=== PATIENT | female | born 1995 | race Caucasian/White ===

== ENCOUNTER 2016-10-02 01:38 | Emergency (ER) | payer MEDICAID, OTHER ==
[~2016-10-02] VITALS: Ht 162.6 cm; Wt 58.0 kg
[2016-10-02] MEDS ORDERED: ONDANSETRON HCL 4 MG/2 ML VIAL IV ONE (01:45)
[2016-10-02] MEDS ORDERED: SODIUM CHLOR 0.9% 1000 ML INJ 1,000 ML IV ONE ×2 (01:45→05:00)
[2016-10-02 01:50] VITALS: BP 118/62; PULSE 65; RESP 16; TEMP 98.1; O2SAT 100
[2016-10-02 02:18] VITALS: RESP 16; O2SAT 100
[2016-10-02 02:23] LABS: HEMATOCRIT 33.9 % (35.0-46.0); RED BLOOD COUNT 4.46 MIL/MM3 (4.00-5.30); WHITE BLOOD COUNT 6.9 TH/MM3 (4.0-11.0)
[2016-10-02 02:24] LABS: AUTOMATED NEUTROPHIL # 4.1 TH/MM3 (1.8-7.7); BASOPHIL % 0.6 % (0.0-2.0); EOSINOPHIL # 0.1 TH/MM3 (0-0.4); EOSINOPHIL % 1.5 % (0.0-4.0); LYMPH % 31.6 % (9.0-44.0); LYMPHOCYTE # 2.2 TH/MM3 (1.0-4.8); MEAN CELL VOLUME 75.9 FL (80.0-100.0); MEAN CORPUSCULAR HEMOGLOBIN 24.7 PG (27.0-34.0); MEAN CORPUSCULAR HGB CONC 32.5 % (32.0-36.0); MONO % 5.9 % (0.0-8.0); NEUT % 60.4 % (16.0-70.0); PLATELET COUNT 284 TH/MM3 (150-450); RED CELL DISTRIBUTION WIDTH 16.6 % (11.6-17.2)
[2016-10-02 02:28] LABS: BLOOD, URINE TRACE (NEG); COMMENT (UR) CATH-CULT NOT IND; CULTURE IF INDICATED CATH CULTURE NOT IND; GLUCOSE,URINE NEG (NEG); KETONE, URINE NEG (NEG); NITRITE,URINE NEG (NEG); TRANSITIONAL EPI CELLS, URINE <1 /hpf; URINE COLOR LIGHT-YELLOW (YELLW/STRAW)
[2016-10-02 02:30] LABS: HEMO FLAGS AUTO DIFF
--- NOTE | 2016-10-02 02:38 | PD ---
HPI Chief Complaint: Alcohol/Drug Intoxication Time Seen by Provider: 01:44 Travel History International Travel<30 days: No Contact w/Intl Traveler<30days: No Traveled to known affect area: No History of Present Illness HPI The patient is a 21 year old female who presents to the [facility] emergency department with a history of being brought in by ambulance services acutely intoxicated with alcohol experiencing nausea and vomiting. The patient was found at a local bar with a decreased level of consciousness. The patient' s GCS was 14. The patient on arrival to this facility is drowsy and intermittently dry heaving. The patient is unable to specify how many alcoholic beverages she has had this evening. When the patient is awake and, the patient becomes tearful and reports that she is embarrassed. The patient denies any recent fevers, cough, congestion, neck pain, chest pain, shortness of breath, abdominal pain, diarrhea, urinary symptoms, or neurologic symptoms. LMP: Unknown PFSH Past Medical History Narrative Medical The patient's past medical history is reportedly none. Immunizations Current: Yes Tetanus Vaccination: Unknown Influenza Vaccination: No ?: Unknown Past Surgical History Narrative Surgical The patient's past surgical history is reportedly none. Social History Alcohol Use: Yes (socially) Tobacco Use: No Substance Use: No Allergies-Medications (Allergen,Severity, Reaction): Coded Allergies: No Known Allergies (Unverified , 10/02/16) Reported Meds & Prescriptions Reported Meds & Active Scripts Active Active Prescriptions or Reported Medications Unobtainable Review of Systems Except as stated in HPI: all other systems reviewed are Neg General / Constitutional: No: Fever Eyes: No: Visual changes HENT: No: Headaches Cardiovascular: No: Chest Pain or Discomfort Respiratory: No: Shortness of Breath Gastrointestinal: Positive: Nausea, Vomiting, No: Abdominal Pain Genitourinary: No: Dysuria Musculoskeletal: No: Pain Skin: No Rash Neurologic: Positive: Weakness (generalized weak), Change in Mentation, Slurred Speech, No: Focal Abnormalities, Sensory Disturbance Psychiatric: No: Depression Endocrine: No: Polydipsia Hematologic/Lymphatic: No: Easy Bruising Physical Exam Narrative General: The patient is a well-developed well-nourished female in no acute distress. Head and Neck exam: Head is normocephalic atraumatic. Eyes: EOMI, pupils are equal round and reactive to light. Nose: Midline septum with pink mucous membranes Mouth: Dentition unremarkable. Moist mucus membranes. Posterior oropharynx is not erythematous. No tonsillar hypertrophy. Uvula midline. Airway patent. Neck: No palpable lymphadenopathy. No nuchal rigidity. No thyromegaly. Cardiovascular: Regular rate and rhythm without murmurs, gallops, or rubs. Lungs: Clear to auscultation bilaterally. No wheezes, rhonchi, or rales. Abdomen: Soft, without tenderness to palpation in all 4 quadrants of the abdomen. No guarding, rebound, or rigidity. Normal bowel sounds are audible. Extremities: No clubbing, cyanosis, or edema. No calf tenderness on palpation. Back: No spinous process tenderness to palpation. No costovertebral angle tenderness to palpation. Neurologic Exam: The patient is unsteady on her feet. The patient has slurred speech and a strong odor of alcohol about her. The patient has strength that is 5 over 5 in all 4 extremities intact sensation over all dermatomes. Skin Exam: No rash noted. Intact skin that is warm and dry. Data Data Last Documented VS Vital Signs Date Time Temp Pulse Resp B/P Pulse Ox O2 Delivery O2 Flow Rate FiO2 10/02/16 04:42 84 16 111/58 100 Room Air 10/02/16 01:50 98.1 Orders Complete Blood Count With Diff (10/02/16 01:44) Comprehensive Metabolic Panel (10/02/16 01:44) Urinalysis - C+S If Indicated (10/02/16 01:44) Magnesium (Mg) (10/02/16 01:44) Chest, Single Ap (10/02/16 01:44) Iv Access Insert/Monitor (10/02/16 01:44) Ecg Monitoring (10/02/16 01:44) Oximetry (10/02/16 01:44) Ed Urine Pregnancytest Poc (10/02/16 01:44) Drug Screen, Random Urine (10/02/16 01:44) Alcohol (Ethanol) (10/02/16 01:44) Sodium Chlor 0.9% 1000 Ml Inj (Ns 1000 M (10/02/16 01:45) Ondansetron Inj (Zofran Inj) (10/02/16 01:45) Sodium Chlor 0.9% 1000 Ml Inj (Ns 1000 M (10/02/16 05:00) Calcium Gluconate Inj (Calcium Gluconate (10/02/16 05:00) Labs Laboratory Tests Test 10/02/16 02:00 White Blood Count 6.9 TH/MM3 Red Blood Count 4.46 MIL/MM3 Hemoglobin 11.0 GM/DL Hematocrit 33.9 % Mean Corpuscular Volume 75.9 FL Mean Corpuscular Hemoglobin 24.7 PG Mean Corpuscular Hemoglobin 32.5 % Concent Red Cell Distribution Width 16.6 % Platelet Count 284 TH/MM3 Mean Platelet Volume 8.3 FL Neutrophils (%) (Auto) 60.4 % Lymphocytes (%) (Auto) 31.6 % Monocytes (%) (Auto) 5.9 % Eosinophils (%) (Auto) 1.5 % Basophils (%) (Auto) 0.6 % Neutrophils # (Auto) 4.1 TH/MM3 Lymphocytes # (Auto) 2.2 TH/MM3 Monocytes # (Auto) 0.4 TH/MM3 Eosinophils # (Auto) 0.1 TH/MM3 Basophils # (Auto) 0.0 TH/MM3 CBC Comment AUTO DIFF Differential Comment AUTO DIFF CONFIRMED Platelet Estimate NORMAL Platelet Morphology Comment NORMAL Ovalocytes 1+ Acanthocytes OCC Urine Color LIGHT-YELLOW Urine Turbidity CLEAR Urine pH 6.0 Urine Specific [place] 1.008 Urine Protein NEG mg/dL Urine Glucose (UA) NEG mg/dL Urine Ketones NEG mg/dL Urine Occult Blood TRACE Urine Nitrite NEG Urine Bilirubin NEG Urine Urobilinogen LESS THAN 2.0 MG/DL Urine Leukocyte Esterase TRACE Urine RBC 5 /hpf Urine WBC LESS THAN 1 /hpf Urine Transitional Epithelial <1 /hpf Cells Microscopic Urinalysis Comment CATH-CULT NOT IND Sodium Level 144 MEQ/L Potassium Level 3.2 MEQ/L Chloride Level 110 MEQ/L Carbon Dioxide Level 21.7 MEQ/L Anion Gap 12 MEQ/L Blood Urea Nitrogen 11 MG/DL Creatinine 0.87 MG/DL Estimat Glomerular Filtration 83 ML/MIN Rate Random Glucose 109 MG/DL Calcium Level 7.4 MG/DL Protein Corrected Calcium 7.9 MG/DL Magnesium Level 2.1 MG/DL Total Bilirubin 0.2 MG/DL Aspartate Amino Transf 22 U/L (AST/SGOT) Alanine Aminotransferase 20 U/L (ALT/SGPT) Alkaline Phosphatase 57 U/L Total Protein 6.2 GM/DL Albumin 3.5 GM/DL Urine Opiates Screen NEG Urine Barbiturates Screen NEG Urine Amphetamines Screen NEG Urine Benzodiazepines Screen NEG Urine Cocaine Screen NEG Urine Cannabinoids Screen NEG Ethyl Alcohol Level 301 MG/DL MDM Medical Decision Making Medical Screen Exam Complete: Yes Emergency Medical Condition: Yes Medical Record Reviewed: Yes Interpretation(s) Laboratory Tests Test 10/02/16 02:00 White Blood Count 6.9 TH/MM3 Red Blood Count 4.46 MIL/MM3 Hemoglobin 11.0 GM/DL Hematocrit 33.9 % Mean Corpuscular Volume 75.9 FL Mean Corpuscular Hemoglobin 24.7 PG Mean Corpuscular Hemoglobin 32.5 % Concent Red Cell Distribution Width 16.6 % Platelet Count 284 TH/MM3 Mean Platelet Volume 8.3 FL Neutrophils (%) (Auto) 60.4 % Lymphocytes (%) (Auto) 31.6 % Monocytes (%) (Auto) 5.9 % Eosinophils (%) (Auto) 1.5 % Basophils (%) (Auto) 0.6 % Neutrophils # (Auto) 4.1 TH/MM3 Lymphocytes # (Auto) 2.2 TH/MM3 Monocytes # (Auto) 0.4 TH/MM3 Eosinophils # (Auto) 0.1 TH/MM3 Basophils # (Auto) 0.0 TH/MM3 CBC Comment AUTO DIFF Differential Comment AUTO DIFF CONFIRMED Platelet Estimate NORMAL Platelet Morphology Comment NORMAL Ovalocytes 1+ Acanthocytes OCC Urine Color LIGHT-YELLOW Urine Turbidity CLEAR Urine pH 6.0 Urine Specific [place] 1.008 Urine Protein NEG mg/dL Urine Glucose (UA) NEG mg/dL Urine Ketones NEG mg/dL Urine Occult Blood TRACE Urine Nitrite NEG Urine Bilirubin NEG Urine Urobilinogen LESS THAN 2.0 MG/DL Urine Leukocyte Esterase TRACE Urine RBC 5 /hpf Urine WBC LESS THAN 1 /hpf Urine Transitional Epithelial <1 /hpf Cells Microscopic Urinalysis Comment CATH-CULT NOT IND Sodium Level 144 MEQ/L Potassium Level 3.2 MEQ/L Chloride Level 110 MEQ/L Carbon Dioxide Level 21.7 MEQ/L Anion Gap 12 MEQ/L Blood Urea Nitrogen 11 MG/DL Creatinine 0.87 MG/DL Estimat Glomerular Filtration 83 ML/MIN Rate Random Glucose 109 MG/DL Calcium Level 7.4 MG/DL Protein Corrected Calcium 7.9 MG/DL Magnesium Level 2.1 MG/DL Total Bilirubin 0.2 MG/DL Aspartate Amino Transf 22 U/L (AST/SGOT) Alanine Aminotransferase 20 U/L (ALT/SGPT) Alkaline Phosphatase 57 U/L Total Protein 6.2 GM/DL Albumin 3.5 GM/DL Urine Opiates Screen NEG Urine Barbiturates Screen NEG Urine Amphetamines Screen NEG Urine Benzodiazepines Screen NEG Urine Cocaine Screen NEG Urine Cannabinoids Screen NEG Ethyl Alcohol Level 301 MG/DL Differential Diagnosis Alcohol intoxication, versus other substance intoxication Narrative Course During the course of the patients emergency department visit, the patients history, examination, and differential diagnosis were reviewed with the patient. The patient had IV access obtained and blood work sent for analysis. The patient was placed on a telemetry monitor with oximetry and blood pressure monitoring. The patient was provided normal saline 1 L IV fluid bolus, Zofran 4 mg IV. The patients laboratory studies were reviewed and remarkable for a CBC that shows a white count of 6.9, hemoglobin 11, platelets 284 with a normal differential, CMP is remarkable for a potassium of 3.2, chloride 110, glucose 109, calcium 7.9, urinalysis is unremarkable, alcohol level CCCI, urine drug screen is negative. The patient's potassium will be supplemented orally when she becomes more awake and alert and is able to tolerate by mouth. The patient was given calcium gluconate for hypocalcemia. The patient was given a second liter normal saline IV fluids. The patient will be observed in the emergency department until she has improvement in mentation and is able to walk without assistance. The patient will then be able to be discharged home with a friend, however as the patient has no ride home, the patient will be observed until her alcohol level is less than 80. The patient on reexamination at 6:55 AM is noted to have improvement in her mentation. The patient is able to ambulate to the restroom. She reports that she has called her friend and her friend will be picking her up. The patient is resting comfortably and feels better, is alert and in no distress. The patients results and examination findings were discussed with the patient. The repeat examination is unremarkable and benign. The history, exam, diagnostic testing, and current condition do not suggest any significant pathology to warrant further testing, continued ED treatment, admission, or surgical evaluation at this point. The vital signs have been stable. The patient does not have uncontrollable pain, intractable vomiting, or other significant symptoms. The patient's condition is stable and appropriate for discharge. The patient will pursue further outpatient evaluation with a primary care physician or other designated or consulting physician as indicated in the discharge instructions. The patient expressed understanding and was agreeable with this plan. Diagnosis Primary Impression: Altered mental status Qualified Code: R41.0 - Disorientation Additional Impressions: Alcohol intoxication Qualified Code: F10.129 - Alcohol intoxication, with unspecified complication Vomiting Qualified Code: R11.2 - Non-intractable vomiting with nausea, unspecified vomiting type Referrals: Primary Care Physician 3 days Patient Instructions: Alcohol Intoxication (ED), General Instructions Scripts Unable to Obtain Active Prescriptions or Reported Meds Disposition: 01 DISCHARGE HOME Condition: Stable Angeles Plata MD Oct 02, 2016 02:38
[2016-10-02 02:56] LABS: ACANTHOCYTES OCC (NORMAL); OVALOCYTES 1+ (NORMAL); PLATELET ESTIMATE SMEAR NORMAL (NORMAL); PLATELET MORPHOLOGY NORMAL (NORMAL); SCAN/DIFF AUTO DIFF CONFIRMED
[2016-10-02 02:58] LABS: BICARBONATE 21.7 MEQ/L (21.0-32.0); CALCIUM-PROTEIN CORRECTED 7.9 MG/DL (8.5-10.1); MAGNESIUM 2.1 MG/DL (1.5-2.5); POTASSIUM 3.2 MEQ/L (3.5-5.1); TOTAL BILIRUBIN ADULT 0.2 MG/DL (0.2-1.0)
--- NOTE | 2016-10-02 03:52 | RADRPT ---
EXAM DATE/TIME: 10/02/2016 02:37 [facility] COMPARISON: No previous studies available for comparison. INDICATIONS : Shortness of breath. MEDICAL HISTORY : None. SURGICAL HISTORY : None. ENCOUNTER: Initial ACUITY: 1 day PAIN SCORE: Non-responsive. LOCATION: Bilateral chest FINDINGS: Single AP view of the chest. The lungs are clear. Cardiomediastinal silhouette within normal limits. No evidence of pleural effusion or pneumothorax. CONCLUSION: No acute cardiopulmonary disease identified. Kota Vargas MD on October 02, 2016 at 3:50 Board Certified Radiologist. This report was verified electronically.
[2016-10-02 04:42] VITALS: BP 111/58; PULSE 84; RESP 16; O2SAT 100
[2016-10-02 04:55] LABS: AMPHETAMINE, URINE NEG (NEG); BARBITURATES, URINE NEG (NEG); COCAINE, URINE NEG (NEG)
[2016-10-02] MEDS ORDERED: CALCIUM GLUCONATE INJ 1 GM in DEXTROSE 5% IN WATER 100ML INJ 100 ML IV ONE ×2 (05:00)
[2016-10-02] MEDS ORDERED: POTASSIUM CHLORIDE 20 MEQ CONTROLLED RELEASE TAB PO ONE (07:00)
[2016-10-02 10:11] VITALS: BP 119/72
== END 2016-10-02 10:24 | disposition home or self-care (01) ==
LOC: NEPE 01:38
DX: R41.82 Altered mental status, unspecified (principal); F10.129 Alcohol abuse with intoxication, unspecified; R11.2 Nausea with vomiting, unspecified
CPT/HCPCS: 71010; 80053; 80307; 81001; 83735; 84703; 85025; 96361; 96365; 96375; 99285; J0610; J2405; J7030